=== PATIENT | male | born 1980 | race Caucasian/White ===

== ENCOUNTER 2017-01-08 19:05 | Emergency (ER) | payer OTHER | END 2017-01-08 21:35 | disposition home or self-care (01) | LOC: ER1 19:05 | DX: S46.911A Strain of unspecified muscle, fascia and tendon at shoulder and upper arm level, right arm, initial encounter (principal); F17.290 Nicotine dependence, other tobacco product, uncomplicated; M10.9 Gout, unspecified; Z88.0 Allergy status to penicillin; X50.0XXA Overexertion from strenuous movement or load, initial encounter | CPT/HCPCS: 73030; 96372; 99283; J1885 ==

== ENCOUNTER → 2017-04-25 | Outpatient (CLI) | payer OTHER ==
[2017-04-25 14:41] LABS: HEMOGLOBIN 14.9 gm/dl (14.0-17.5); RED BLOOD COUNT 4.76 M/UL (4.20-5.50); WHITE BLOOD COUNT 9.9 K/UL (4.5-11.0)
== END ==
LOC: LAB 14:00
PROVIDERS: Podiatrist Foot & Ankle Surgery
DX: M10.072 Idiopathic gout, left ankle and foot (principal); M25.572 Pain in left ankle and joints of left foot
CPT/HCPCS: 36415; 84550; 85027; 86140